=== PATIENT | female | born 1955 | race Caucasian/White ===

== ENCOUNTER 2018-12-14 11:01 | Inpatient (IN) | payer BC ==
[~2018-12-14] VITALS: Ht 167.6 cm; Wt 104.3 kg
[~2018-12-14 11:01] MED LIST: LEVOTHYROXINE PO; METFORMIN HCL500 MG PO; ZYRTEC PO
[2018-12-14] MEDS ORDERED: SODIUM CHLORIDE 0.9% 1000ML 1,000 ML IV STA (11:25)
[2018-12-14] MEDS ORDERED: CEFTRIAXONE SOD 1 GM/NS 50 ML 50 ML IV ONE (11:30)
[2018-12-14] MEDS ORDERED: LEVOTHYROXINE50 MCG (11:41)
[2018-12-14] MEDS ORDERED: CARBAMAZEPINE200 MG (11:41)
[2018-12-14] MEDS ORDERED: PAROXETINE HCL10 MG (11:41)
[2018-12-14] MEDS ORDERED: MOXIFLOXACIN3 ML (11:41)
[2018-12-14] MEDS ORDERED: SIMVASTATIN20 MG (11:41)
[2018-12-14] MEDS ORDERED: KETOROLAC TROMET5 ML (11:41)
[2018-12-14] MEDS ORDERED: NEOMYCIN-POLYMY10 M1 (11:41)
[2018-12-14] MEDS ORDERED: MONTELUKAST SOD10 MG (11:41)
[2018-12-14] MEDS ORDERED: SUMATRIPTAN SU100 MG (11:41)
[2018-12-14] MEDS ORDERED: FLUCELVAX (11:41)
[2018-12-14] MEDS ORDERED: ONDANSETRON HCL4 MG (11:41)
[2018-12-14] MEDS ORDERED: ULTRAM 50MG50 MG (11:41)
--- NOTE | 2018-12-14 12:00 | Diagnostic Imaging Report ---
EXAMINATION: CHEST SINGLE (PORTABLE) INDICATION: Shortness of breath COMPARISON: None FINDINGS: LINES/TUBES:EKG leads overlie the chest. LUNGS:The lung volumes are low. Mild bibasilar patchy opacities. PLEURA:No pleural effusion or pneumothorax. MEDIASTINUM:The cardiomediastinal silhouette is at the upper limits of normal for size. BONES/SOFT TISSUES:No acute osseous injury. ABDOMEN:No free air under the diaphragm. IMPRESSION: Low lung volumes. Mild bibasilar patchy opacities, more likely subsegmental atelectasis than superimposed aspiration or pneumonia. Borderline heart size with central pulmonary vascular congestion but no mina pulmonary edema. Signed by: Lorna Villegas MD on 12/14/2018 11:57 AM
[2018-12-14 12:10] LABS: BASOPHILS # (AUTO) 0.1 (0.0-0.1); BASOPHILS % 0.5 % (0.0-1.0); EOSINOPHILS # (AUTO) 0.1 (0.0-0.4); EOSINOPHILS % 0.6 % (0.0-6.0); HEMATOCRIT 37.9 % (34.2-44.1); HEMOGLOBIN 12.2 g/dL (12.0-16.0); LYMPHOCYTES # (AUTO) 1.6 (1.0-3.2); LYMPHOCYTES % 16.3 % (18.0-39.1); MEAN CORPUSCULAR HEMOGLOBIN 29.3 pg (28-32); MEAN CORPUSCULAR HGB CONC 32.2 g/dL (31-35); MEAN CORPUSCULAR VOLUME 90.9 fL (81-99); MONOCYTES # (AUTO) 1.2 (0.2-0.8); MONOCYTES % 11.9 % (4.4-11.3); NEUTROPHILS % 70.4 % (38.7-80.0); PLATELET COUNT 294 x10e3/uL (140-360); RED BLOOD COUNT 4.17 x10e6/uL (3.6-5.1); RED CELL DISTRIBUTION WIDTH 13.9 % (11.7-14.4)
[2018-12-14 12:21] LABS: BILIRUBIN,URINE NEGATIVE (NEGATIVE); CLARITY,URINE CLEAR (CLEAR); COLOR,URINE YELLOW (YELLOW); KETONES,URINE TRACE (NEGATIVE); LEUKOCYTE ESTERASE ,URINE NEGATIVE (NEGATIVE); NITRITE,URINE NEGATIVE (NEGATIVE); PROTEIN,URINE DIPSTICK NEGATIVE (NEGATIVE); URINE UROBILINOGEN 0.2 mg/dL (0.2 - 1)
[2018-12-14 12:29] LABS: ALANINE AMINOTRANSFERASE 30 IU/L (0-55); ALBUMIN 3.3 g/dL (3.5-5.0); ALBUMIN/GLOBULIN RATIO 0.9 (0.8-2.0); ALKALINE PHOSPHATASE 99 IU/L (40-150); ANION GAP 12.6 mmol/L (8-16); BLOOD UREA NITROGEN 10 mg/dL (7-26); BUN/CREATININE RATIO 13 (6-25); CALCIUM 9.1 mg/dL (8.4-10.2); CARBON DIOXIDE 29 mmol/L (22-29); CHLORIDE 98 mmol/L (98-107); EST GLOMERULAR FILTRATION RATE > 60 ML/MIN (60-); GLUCOSE 102 mg/dL (74-118); POTASSIUM 3.6 mmol/L (3.5-5.1); SODIUM 136 mmol/L (136-145)
[2018-12-14 12:31] LABS: WBC,URINE (MAN) 21-50 /HPF (0-5)
[2018-12-14 12:32] LABS: BACTERIA,URINE MANY /HPF; EPITHELIAL CELLS,URINE FEW /LPF
[2018-12-14] MEDS ORDERED: IBUPROFEN 600 MG TAB PO STA (12:45)
[2018-12-14] MEDS ORDERED: CEFTRIAXONE SOD 1 GM VIAL IV SCH (13:15)
[2018-12-14] MEDS ORDERED: ONDANSETRON HCL INJ 2MG/ML 2ML 2 MG/ML VIAL IV PRN (13:15)
--- OUTSIDE RECORDS SUMMARY | 2018-12-14 13:55 | XMS REPORT ---
[facility] Address Unknown Phone Unavailable Care Team Providers [employer] Name Role Phone LEWIS LYMAN Unavailable Unavailable Problems This patient has no known problems. Allergies, Adverse Reactions, Alerts This patient has no known allergies or adverse reactions. Medications This patient has no known medications. Results Test Description Test Time Test Comments Text Results Atomic Results Result Comments CHEST SINGLE (PORTABLE) 2018-12-14 11:55:00 [place] [id number] Patient Name: HIRO VILLANUEVA MR #: [id number] : 1955 Age/Sex: 63/F Req #: [id number] Adm Physician: Ordered by: LEWIS LYMAN MD Report #: [id number] Location: ER Room/Bed: Procedure: [id number] DX/CHEST SINGLE (PORTABLE) Exam Date: 12/14/18 Exam Time: 1145 REPORT STATUS: Signed EXAMINATION: CHEST SINGLE (PORTABLE) INDIC ATION: Shortness of breath COMPARISON: None FINDINGS: LINES/TUBES:EKG leads overlie the chest. LUNGS:The lung volumes are low. Mild bibasilar patchy opacities. PLEURA:No pleural effusion or pneumothorax. MEDIASTINUM:The cardiomediastinal silhouette is at the upper limits of normal for size. BONES/SOFT TISSUES:No acute osseous injury. ABDOMEN:No free air under the diaphragm. IMPRESSION: Low lung volumes. Mild bibasilar patchy opacities, more likely subsegmental atelectasis than superimposed aspiration or pneumonia. Borderline heart size with central pulmonary vascular congestion but no mina pulmonary edema. Signed by: Deshawn Villegas MD on 12/14/2018 11:57 AM Dictated By: DESHAWN VILLEGAS MD [id number] Transcribed By: BLAIR on 12/14/18 0538 COPY TO: LEWIS LYMAN MD
--- NOTE | 2018-12-14 14:03 | NUR ---
RECEIVED REPORT FROM ER. WAITING FOR PATIENT AT THIS TIME.
--- NOTE | 2018-12-14 14:11 | NUR ---
H&P cc: SOB HPI: 63yoF, PCP , developed SOB and cough; Fever at home 100.5. Pt had hiatal hernia repair 2 days ago. PMH: DM2, HTN, HLD, Hypothyroidism PSHX; hysterectomy; tubal ligation, Jones's neuroma, hiatal hernia repair Allergies; see emr FH/SH; single; no cigs; Meds; see MAR ROS: no cp/sob/skin rash/dizziness/vision changes/back pain/diarrhea v/s; revd PE tired appearing anicteric ns1s2 REDUCED BREATH SOUNDS AT BASES LAP SITES ON ABDOMINAL WALL; minimal tenderness of abdomen no e/t skin dry n. affect a&ox3; lucero labs/meds revd A/P: 63yoF UTI PNA Obesity BMI 38 DM2 HLD Hypothyroidism PLAN IV abx; no azithromycin due to allergy antitussives; hba1c/lipids PT consult SCD/melissa Elizondo MD, PhD.
--- NOTE | 2018-12-14 14:28 | NUR ---
RECEIVED PATIENT FROM ER. PATIENT A/O X3, EVEN RESPIRATIONS ON RA. LUNG SOUNDS CLEAR TO AUSCULTATION. LAP TROCAR SITES ON ABDOMEN X5, DRY/INTACT, MINIMAL DRY DRAINAGE. PATIENT AMBULATES INDEPENDENTLY. RIGHT AC 20 GAUGE IV WITH NS @ 125 CC/HR. NO PAIN AT THIS TIME. VS STABLE. ORIENTED PATIENT TO ROOM AND CALL LIGHT. BED LOW, WHEELS LOCKED, SIDE RAILS X2. CALL LIGHT IN REACH WILL CONTINUE TO MONITOR PATIENT.
[2018-12-14 14:50] VITALS: BP 160/93
[2018-12-14 15:24] VITALS: BP 160/93
[2018-12-14 15:25] VITALS: BP 160/93
[2018-12-14] MEDS: SODIUM CHLORIDE 0.9% 1000ML 1,000 ML IV SCH (16:00)
[2018-12-14] MEDS: FAMOTIDINE 20 MG TAB PO SCH (16:00)
[2018-12-14] MEDS: BENZONATATE 100 MG CAP PO SCH ×2 (16:00→20:24)
[2018-12-14 19:08] VITALS: BP 163/84
--- NOTE | 2018-12-14 19:08 | NUR ---
PT IS RESTING IN BED. RESPIRATION IS EVEN AND UNLABORED, NO DISTRESS NOTED. BED IN THE LOWEST POSITION, LOCKED, AND CALL LIGHT WITHIN REACH. WILL CONTINUE TO MONITOR.
[2018-12-14 19:15] VITALS: BP 163/84
[2018-12-14] MEDS ORDERED: TRAMADOL HCL 50 MG TAB PO PRN (20:30)
--- NOTE | 2018-12-14 20:30 | NUR ---
PT COMPLAINING OF PAIN. PER DR CROWE TRAMADOL 50MG PO Q6H PRN. WILL CONTINUE TO MONITOR.
[2018-12-14] MEDS ORDERED: SIMVASTATIN 20 MG TAB PO SCH (21:00)
--- NOTE | 2018-12-14 23:11 | NUR ---
PT HAS A TEMP OF 100.8. PER DR CROWE TYLENOL 650MG PO Q6H. WILL CONTINUE TO MONITOR.
[2018-12-14 23:24] VITALS: BP 151/82
[2018-12-14] MEDS ORDERED: ACETAMINOPHEN 325 MG TAB PO PRN (23:30)
[2018-12-15] MEDS: SODIUM CHLORIDE 0.9% 1000ML 1,000 ML IV SCH ×3 (00:11→13:01)
[2018-12-15 05:16] LABS: BASOPHILS % 0.5 % (0.0-1.0); EOSINOPHILS # (AUTO) 0.1 (0.0-0.4); EOSINOPHILS % 1.5 % (0.0-6.0); HEMATOCRIT 33.9 % (34.2-44.1); HEMOGLOBIN 10.8 g/dL (12.0-16.0); LYMPHOCYTES # (AUTO) 1.9 (1.0-3.2); MEAN CORPUSCULAR HGB CONC 31.9 g/dL (31-35); MEAN CORPUSCULAR VOLUME 91.1 fL (81-99); MONOCYTES % 12.2 % (4.4-11.3); NEUTROPHILS # (AUTO) 5.4 (2.1-6.9); NEUTROPHILS % 63.6 % (38.7-80.0); PLATELET COUNT 271 x10e3/uL (140-360); RED BLOOD COUNT 3.72 x10e6/uL (3.6-5.1); RED CELL DISTRIBUTION WIDTH 13.7 % (11.7-14.4)
[2018-12-15 05:40] LABS: ANION GAP 13.8 mmol/L (8-16); BLOOD UREA NITROGEN 10 mg/dL (7-26); BUN/CREATININE RATIO 14 (6-25); CALCIUM 8.6 mg/dL (8.4-10.2); CARBON DIOXIDE 24 mmol/L (22-29); CHLORIDE 105 mmol/L (98-107); CREATININE, SERUM 0.69 mg/dL (0.57-1.11); EST GLOMERULAR FILTRATION RATE > 60 ML/MIN (60-); GLUCOSE 98 mg/dL (74-118); POTASSIUM 3.8 mmol/L (3.5-5.1); SODIUM 139 mmol/L (136-145)
[2018-12-15 05:50] VITALS: BP 137/74
--- NOTE | 2018-12-15 07:09 | NUR ---
pt asleep resp even and unlabored at this time, pt able to make needs known, no c/c pain when asked, call light in reach, will cont to monitor.
--- NOTE | 2018-12-15 07:20 | NUR ---
IM- progress note O/N no events ROS: no cp/sob/skin rash/dizziness/vision changes/back pain/diarrhea v/s; revd PE tired appearing anicteric ns1s2 REDUCED BREATH SOUNDS AT BASES LAP SITES ON ABDOMINAL WALL; minimal tenderness of abdomen no e/t skin dry n. affect a&ox3; lucero labs/meds revd A/P: 63yoF UTI PNA Obesity BMI 38 DM2 HLD Hypothyroidism PLAN IV abx; no azithromycin due to allergy antitussives; hba1c/lipids PT consult SCD/pepcid 12/15 cont care; Jigar Elizondo MD, PhD.
[2018-12-15] MEDS ORDERED: CEFUROXIME500 MG PO (07:22)
[2018-12-15] MEDS ORDERED: TESSALON PERLE100 MG PO (07:22)
[2018-12-15 08:34] VITALS: BP 166/98
[2018-12-15] MEDS ORDERED: CEFTRIAXONE SOD 1 GM/NS 50 ML 50 ML IV SCH (09:00)
[2018-12-15] MEDS ORDERED: MONTELUKAST SODIUM 10 MG TAB PO SCH (09:00)
[2018-12-15] MEDS: FAMOTIDINE 20 MG TAB PO SCH (09:29)
[2018-12-15] MEDS: BENZONATATE 100 MG CAP PO SCH (09:29)
[2018-12-15 10:30] VITALS: BP 166/98
[2018-12-15 12:19] VITALS: BP 162/94
[2018-12-15] MEDS ORDERED: ONDANSETRON HCL 4 MG ORAL DISINTEGRATING TAB PO PRN (13:30)
== END 2018-12-15 14:20 | disposition home or self-care (01) | DRG 194 ==
LOC: ER 11:01 → ERHOLD 13:52 → MED/SURG2 14:49
PROVIDERS: ADMIT Internal Medicine; ATTEND Internal Medicine
DX: J18.9 Pneumonia, unspecified organism (principal); N39.0 Urinary tract infection, site not specified; E11.9 Type 2 diabetes mellitus without complications; I10 Essential (primary) hypertension; E03.9 Hypothyroidism, unspecified; E78.5 Hyperlipidemia, unspecified; E66.9 Obesity, unspecified; Z68.38 Body mass index [BMI] 38.0-38.9, adult
CPT/HCPCS: 36415; 71045; 80048; 80053; 81001; 82948; 83605; 85025; 87040; 93005; 94760; 99284; J0696; J7030